=== PATIENT | female | born 1975 | race Caucasian/White ===

== ENCOUNTER 2017-07-17 19:15 | Emergency (ER) | payer BC ==
--- NOTE | 2017-07-17 20:58 | ER ---
Nurse's Notes [facility] Name: Lamar Escobar Age: 42 yrs Sex: Female : 1975 Arrival Date: 07/17/2017 Time: 19:19 Bed 8 Private MD: Randal Lowry Diagnosis: Sprain of ankle Presentation: 07/17 19:38 Presenting complaint: Patient states: stepped off of deck this afternoon at about 1pm tl3 and rolled one ankle the in trying to compensate, rolled the other one, pt is ambulatory. Transition of care: patient was not received from another setting of care. Onset of symptoms was July 17, 2017. Risk Assessment: Do you want to hurt yourself or someone else? Patient reports no desire to harm self or others. Initial Sepsis Screen: Does the patient meet any 2 criteria? No. Patient's initial sepsis screen is negative. Does the patient have a suspected source of infection? No. Patient's initial sepsis screen is negative. Care prior to arrival: None. 19:38 Method Of Arrival: Ambulatory tl3 19:38 Acuity: DEREK 3 tl3 Triage Assessment: 19:40 General: Appears uncomfortable, Behavior is appropriate for age. Pain: Complains of tl3 pain in right leg, left lateral ankle, left Achilles, left medial ankle and anterior aspect of left ankle. Musculoskeletal: Swelling present in bilateral ankles. 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 - Social history:: Smoking status: Patient/guardian denies using tobacco, never smoked. - Ebola Screening: : Patient denies travel to an Ebola-affected area in the 21 days before illness onset. Screenin:39 Abuse screen: Denies threats or abuse. Denies injuries from another. Nutritional bp screening: No deficits noted. Tuberculosis screening: No symptoms or risk factors identified. Fall Risk None identified. Assessment: 20:37 General: Appears in no apparent distress. comfortable, obese, Behavior is calm, bp cooperative, appropriate for age. Pain: Complains of pain in right ankle and left medial ankle. Neuro: Level of Consciousness is awake, alert, obeys commands, Oriented to person, place, time, situation, Appropriate for age. Cardiovascular: No deficits noted. Respiratory: Airway is patent Respiratory effort is even, unlabored, Respiratory pattern is regular, symmetrical. GI: No signs and/or symptoms were reported involving the gastrointestinal system. : No signs and/or symptoms were reported regarding the genitourinary system. EENT: No deficits noted. Derm: No deficits noted. Musculoskeletal: Circulation, motion, and sensation intact. Range of motion: limited in left ankle and right ankle. 21:15 Reassessment: XRAY COMPLETED, RESULTS PENDING FOR DISPO. rv 21:37 Reassessment: Patient appears in no apparent distress at this time. Patient is alert, aa1 oriented x 3, equal unlabored respirations, skin warm/dry/pink. Discussed d/c \T\ f/u instructions with pt; denies questions or concerns at this time. Vital Signs: 19:40 BP 127 / 83; Pulse 93; Resp 18; Temp 98.8; Pulse Ox 98% ; Weight 99.79 kg; Height 5 ft. tl3 4 in. (162.56 cm); 20:37 BP 144 / 92; Pulse 76; Resp 13; Pulse Ox 96% ; bp 21:37 BP 120 / 76; Pulse 76; Resp 18; Pulse Ox 100% on R/A; aa1 19:40 Body Mass Index 37.76 (99.79 kg, 162.56 cm) tl3 ED Course: 19:19 Patient arrived in ED. es 19:19 Randal Lowry MD is Private Physician. es 19:39 Triage completed. tl3 19:40 Arm band placed on left wrist. tl3 20:32 Jeff Haskins MD is Attending Physician. tw4 20:37 Randal Lovett RN is Primary Nurse. bp 20:39 Patient has correct armband on for positive identification. Bed in low position. Call bp light in reach. Side rails up X2. Adult w/ patient. 20:57 Randal Lowry MD is Referral Physician. tw4 21:12 X-ray completed. Portable x-ray completed in exam room. Patient tolerated procedure mh1 well. 21:15 Ankle Left 3 View XRAY In Process Unspecified. EDMS 21:15 Ankle Right 3 View XRAY In Process Unspecified. EDMS 21:37 No provider procedures requiring assistance completed. Patient did not have IV access aa1 during this emergency room visit. Administered Medications: No medications were administered Outcome: 20:58 Discharge ordered by . [email or web address] 21:37 Discharged to home ambulatory, with significant other. aa1 21:37 Condition: good 21:37 Discharge instructions given to patient, significant other, Instructed on discharge instructions, follow up and referral plans. medication usage, Demonstrated understanding of instructions, follow-up care, medications, Prescriptions given X 1. 21:42 Patient left the ED. aa1 Signatures: Dispatcher [employer] Myrna Aguero, RN RN aa1 Rhona Huang Martha 1 Randal Lovett, RN RN bp Jeff Haskins MD MD tw4 Annabel Smith RN RN tl3 Jaya Sanders, RN RN rv
--- NOTE | 2017-07-17 20:58 | EDPHYS ---
Physician Documentation [facility] Name: Lamar Escobar Age: 42 yrs Sex: Female : 1975 Arrival Date: 07/17/2017 Time: 19:19 Bed 8 Private MD: Randal Lowry ED Physician Jeff Haskins HPI: 07/17 20:41 This 42 yrs old Female presents to ER via Ambulatory with complaints of Ankle tw4 Injury. 20:41 The patient presents with decreased range of motion, a deformity, an injury. The tw4 complaints affect the left ankle, right ankle. Onset: The symptoms/episode began/occurred today. Context: The problem was sustained at home, resulted from a mis-step by the patient, on a curb, The mechanism of injury involved inversion of the affected ankle. The mechanism of injury involved eversion of the affected ankle. The patient can fully bear weight on the affected extremity. the patient is able to ambulate. Context: the patient is able to ambulate, with mild difficulty. Associated signs and symptoms: The patient has no apparent associated signs or symptoms. Modifying factors: The symptoms are alleviated by nothing, the symptoms are aggravated by nothing. Severity of symptoms: At their worst the symptoms were mild, in the emergency department the symptoms are unchanged. The patient has not experienced similar symptoms in the past. 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 - Social history:: Smoking status: Patient/guardian denies using tobacco, never smoked. - Ebola Screening: : Patient denies travel to an Ebola-affected area in the 21 days before illness onset. ROS: 20:41 Constitutional: Negative for fever, chills, and weight loss, Cardiovascular: Negative tw4 for chest pain, palpitations, and edema, Respiratory: Negative for shortness of breath, cough, wheezing, and pleuritic chest pain, Abdomen/GI: Negative for abdominal pain, nausea, vomiting, diarrhea, and constipation, Neuro: Negative for headache, weakness, numbness, tingling, and seizure. 20:41 MS/extremity: Positive for injury or acute deformity, swelling, tenderness, Negative for abrasion, bite, contusion, deformity, ecchymosis. Exam: 20:59 Constitutional: This is a well developed, well nourished patient who is awake, alert, tw4 and in no acute distress. Cardiovascular: Regular rate and rhythm with a normal S1 and S2. No gallops, murmurs, or rubs. Normal PMI, no JVD. No pulse deficits. Respiratory: Lungs have equal breath sounds bilaterally, clear to auscultation and percussion. No rales, rhonchi or wheezes noted. No increased work of breathing, no retractions or nasal flaring. Abdomen/GI: Soft, non-tender, with normal bowel sounds. No distension or tympany. No guarding or rebound. No evidence of tenderness throughout. 20:59 Musculoskeletal/extremity: Extremities: noted in the right foot, left Achilles and left medial malleolus: pain, noted in the left lateral malleolus and left medial malleolus: pain. Vital Signs: 19:40 BP 127 / 83; Pulse 93; Resp 18; Temp 98.8; Pulse Ox 98% ; Weight 99.79 kg; Height 5 ft. tl3 4 in. (162.56 cm); 20:37 BP 144 / 92; Pulse 76; Resp 13; Pulse Ox 96% ; bp 21:37 BP 120 / 76; Pulse 76; Resp 18; Pulse Ox 100% on R/A; aa1 19:40 Body Mass Index 37.76 (99.79 kg, 162.56 cm) tl3 MDM: 20:32 Patient medically screened. tw4 20:57 Differential diagnosis: sprain. Data reviewed: vital signs, nurses notes. Test tw4 interpretation: by ED physician or midlevel provider: plain radiologic studies. Counseling: I had a detailed discussion with the patient and/or guardian regarding: the historical points, exam findings, and any diagnostic results supporting the discharge/admit diagnosis, radiology results. Special discussion: I discussed with the patient/guardian in detail that at this point there is no indication for admission to the hospital. It is understood, however, that if the symptoms persist or worsen the patient needs to return immediately for re-evaluation. 07/17 20:23 Order name: Ankle Left 3 View XRAY tw4 07/17 20:40 Order name: Ankle Right 3 View XRAY tw4 Administered Medications: No medications were administered Disposition: 07/17/17 20:58 Discharged to Home. Impression: Sprain of ankle. - Condition is Stable. - Discharge Instructions: Ankle Sprain, [id number]. - Prescriptions for Ibuprofen 800 mg Oral Tablet - take 1 tablet by ORAL route every 8 hours As needed take with food; 30 tablet. - Medication Reconciliation Form, Thank You Letter, Antibiotic Education, Prescription Opioid Use form. - Follow up: Randal Lowry MD; When: As needed; Reason: Recheck today's complaints, Continuance of care, Re-evaluation by your physician. - Problem is new. - Symptoms have improved. Signatures: Dispatcher [employer] EDMS Myrna Frazier RN RN aa1 Jeff Haskins MD MD tw4 Annabel Smith RN RN tl3 Corrections: (The following items were deleted from the chart) 21:42 20:58 07/17/2017 20:58 Discharged to Home. Impression: Sprain of ankle. Condition is aa1 Stable. Forms are Medication Reconciliation Form, Thank You Letter, Antibiotic Education, Prescription Opioid Use. Follow up: Randal Lowry; When: As needed; Reason: Recheck today's complaints, Continuance of care, Re-evaluation by your physician. Problem is new. Symptoms have improved. tw4
--- NOTE | 2017-07-18 11:41 | RAD REPORT ---
EXAM DESCRIPTION: RAD - Ankle Right 3 View - 07/17/2017 9:18 pm CLINICAL HISTORY: Right ankle pain status post injury FINDINGS: No fracture or dislocation is seen.
--- NOTE | 2017-07-18 11:42 | RAD REPORT ---
EXAM DESCRIPTION: RAD - Ankle Left 3 View -07/17/2017 9:17 pm CLINICAL HISTORY: Left ankle pain status post injury FINDINGS: No fracture or dislocation is seen.
== END 2017-07-17 21:42 | disposition home or self-care (01) ==
LOC: ER 19:15
DX: S93.401A Sprain of unspecified ligament of right ankle, initial encounter (principal); W01.0XXA Fall on same level from slipping, tripping and stumbling without subsequent striking against object, initial encounter; Y93.9 Activity, unspecified; Y92.9 Unspecified place or not applicable; Y99.9 Unspecified external cause status
CPT/HCPCS: 99283

== ENCOUNTER 2018-06-30 07:46 | Emergency (ER) | payer BC ==
--- OUTSIDE RECORDS SUMMARY | 2018-06-30 07:49 | XMS REPORT ---
:1975 [facility] Address [address] [place] [address] Dr. Smith [address] [place] [id number] Care Team Providers Name Role Phone Unavailable Unavailable Unavailable Problems This patient has no known problems. Allergies, Adverse Reactions, Alerts This patient has no known allergies or adverse reactions. Medications This patient has no known medications.
[2018-06-30 08:39] LABS: Absolute Lymphocytes (CBC) 0.4 K/uL (0.7-4.9); Absolute Monocytes 0.6 K/uL (0.1-1.3); Absolute Neutrophil 4.3 K/uL (1.8-8.0); Basophils % 0.2 % (0-1.3); Eosinophils % 0.4 % (0-4.4); Lymphocytes % 7.3 % (15.3-44.8); MPV 8.5 fL (7.6-11.3); Monocytes % 11.9 % (3.3-12.3); RBC Red Blood Cell Count 4.85 M/uL (3.86-4.86)
[2018-06-30 09:05] LABS: BUN Blood Urea Nitrogen 13 mg/dL (7-18); Bicarbonate 26 mmol/L (21-32); Glucose Level 128 mg/dL (74-106); Potassium 3.4 mmol/L (3.5-5.1); Sodium Level 139 mmol/L (136-145); Troponin (Emerg Dept Use Only) < 0.02 ng/mL (0.0-0.045)
--- NOTE | 2018-06-30 09:25 | RAD REPORT ---
EXAM DESCRIPTION: Alice Single View06/30/2018 8:36 am CLINICAL HISTORY: Chest pain COMPARISON: none FINDINGS: The lungs appear clear of acute infiltrate. The heart is normal size IMPRESSION: No acute abnormalities displayed
[2018-06-30] MEDS ORDERED: KETOROLAC 30 MG/ML INJ ONE (10:04)
--- NOTE | 2018-06-30 11:18 | RAD REPORT ---
EXAM DESCRIPTION: CT - Chest For Pe Angio - 06/30/2018 10:51 am CLINICAL HISTORY: Chest pain COMPARISON: None. TECHNIQUE: Dynamically enhanced axial 3 mm thick images of the chest were obtained during administra tion of <100> mL Isovue 370 IV contrast. Coronal and oblique reconstruction images were generated and reviewed. Exam utilizes a protocol for optimal evaluation of pulmonary arterial tree. Maximum intensity projections 3D imaging was utilized All CT scans are performed using dose optimization technique as appropriate and may include automated exposure control or mA/KV adjustment according to patient size. FINDINGS: The opacification of the pulmonary arteries is suboptimal. A central pulmonary embolus is not seen. A thoracic aortic aneurysm is not noted. A pleural effusion is not seen. A pericardial effusion is not seen. A lung consolidation is not present. Calcified left lung granuloma IMPRESSION: No gross evidence for pulmonary embolus
[2018-06-30 11:23] LABS: Urine Blood 1+ (NEG); Urine Glucose NEGATIVE (NEG); Urine Protein NEGATIVE (NEG); Urine Specific Gravity 1.025 (1.005-1.030); Urine pH 5.5 (5.0-7.0)
--- NOTE | 2018-06-30 11:31 | ER ---
Nurse's Notes [facility] Name: Lamar Escobar Age: 43 yrs Sex: Female : 1975 Arrival Date: 06/30/2018 Time: 07:49 Bed 15 Private MD: Randal Lowry Diagnosis: Chest pain, unspecified Presentation: 06/30 08:06 Presenting complaint: Patient states: Was unable to sleep last night, My is out sg of town, Im not sure if I am anxious or what, but i have this chest pain that goes deep into my bones, my gums ache and I just dont feel right. Transition of care: patient was not received from another setting of care. Onset of symptoms was June 30, 2018. Risk Assessment: Do you want to hurt yourself or someone else? Patient reports no desire to harm self or others. Initial Sepsis Screen: Does the patient meet any 2 criteria? HR > 90 bpm. Does the patient have a suspected source of infection? No. Patient's initial sepsis screen is negative. Care prior to arrival: None. 08:06 Method Of Arrival: Ambulatory sg 08:06 Acuity: DEREK 3 sg Historical: - Allergies: 08:12 No Known Allergies; sg - Home Meds: 08:11 levothyroxine oral [Active]; sg - PMHx: 08:11 Hypothyroidism; sg - PSHx: 08:11 back surgery; acl repair; ; sg - Immunization history:: Adult Immunizations up to date. - Social history:: Smoking status: Patient/guardian denies using tobacco. - Ebola Screening: : Patient negative for fever greater than or equal to 101.5 degrees Fahrenheit, and additional compatible Ebola Virus Disease symptoms Patient denies exposure to infectious person Patient denies travel to an Ebola-affected area in the 21 days before illness onset No symptoms or risks identified at this time. Screenin:10 Abuse screen: Denies threats or abuse. Denies injuries from another. Nutritional sg screening: No deficits noted. Tuberculosis screening: No symptoms or risk factors identified. Never had TB. Fall Risk None identified. Assessment: 08:10 General: Appears in no apparent distress. well groomed, well developed, well nourished, sg Behavior is cooperative, anxious, crying. Pain: Complains of pain in anterior aspect of left upper chest Quality of pain is described as aching. Neuro: Level of Consciousness is awake, alert, obeys commands, Oriented to person, place, time, [place] are equal bilaterally Moves all extremities. Full function Speech is normal, Facial symmetry appears normal. Cardiovascular: Capillary refill is brisk in bilateral fingers Patient's skin is warm and dry. Chest pain is described as vague, is located in left anterior chest wall. Respiratory: Airway is patent Respiratory effort is even, unlabored, Respiratory pattern is regular, symmetrical. GI: Abdomen is round. : No signs and/or symptoms were reported regarding the genitourinary system. EENT: No signs and/or symptoms were reported regarding the EENT system. Derm: Skin is pink, warm \T\ dry. Musculoskeletal: No signs and/or symptoms reported regarding the musculoskeletal system. 10:23 Reassessment: Patient appears in no apparent distress at this time. Patient and/or sg family updated on plan of care and expected duration. Pain level reassessed. Patient is alert, oriented x 3, equal unlabored respirations, skin warm/dry/pink. awaiting CT at this time Patient denies pain at this time. Patient states feeling better. 11:24 Reassessment: Patient appears in no apparent distress at this time. Patient and/or sg family updated on plan of care and expected duration. Pain level reassessed. Patient is alert, oriented x 3, equal unlabored respirations, skin warm/dry/pink. awaiting dispo orders at this time, will continue to monitor Patient states feeling better. Vital Signs: 08:09 BP 138 / 96; Pulse 112 MON; Resp 19; Temp 98.0; Pulse Ox 99% on R/A; Pain 8/10; sg 09:02 BP 128 / 96; Pulse 115; Resp 17; Pulse Ox 100% on R/A; sg 10:24 BP 110 / 81; Pulse 105; Resp 17; Pulse Ox 99% on R/A; sg 11:22 Pulse 97 MON; Resp 17 S; Pulse Ox 97% on R/A; Pain 0/10; sg ED Course: 07:49 Patient arrived in ED. mr 07:49 Randal Lowry MD is Private Physician. mr 07:56 Raheel Lucio, DENITA is Primary Nurse. sg 07:57 Mark Morley MD is Attending Physician. gs 08:08 Triage completed. sg 08:08 Arm band placed on. sg 08:15 Patient has correct armband on for positive identification. Bed in low position. Call sg light in reach. Side rails up X2. color television console monitor on. Pulse ox on. NIBP on. Warm blanket given. Head of bed elevated. 08:30 Initial lab(s) drawn, by me, sent to lab. Inserted saline lock: 22 gauge in right iw forearm, using aseptic technique. Blood collected. 08:34 X-ray completed. Portable x-ray completed in exam room. Patient tolerated procedure mh1 well. 08:34 EKG done, by air launch weapons technician. reviewed by Mark Morley MD. at1 08:37 XRAY Chest (1 view) In Process Unspecified. EDMS 10:25 Radiology exam delayed due to test not completed at this time. sj 10:52 CT Chest For PE Angio In Process Unspecified. EDMS 11:31 Riki Contreras MD is Referral Physician. gs 11:40 No provider procedures requiring assistance completed. IV discontinued, intact, sg bleeding controlled, No redness/swelling at site. Pressure dressing applied. Administered Medications: 09:55 Drug: TORadol - Ketorolac 15 mg Route: IVP; Site: right forearm; sg 10:30 Follow up: Response: No adverse reaction; Pain is decreased sg Outcome: 11:31 Discharge ordered by MD. gs 11:40 Discharged to home ambulatory. sg 11:40 Condition: good 11:40 Discharge instructions given to patient, Instructed on discharge instructions, follow up and referral plans. safety practices, Demonstrated understanding of instructions, follow-up care. 11:49 Patient left the ED. sg Signatures: Dispatcher [employer] EDMS Raheel Lucio, RN RN Margaret Mckeon Martha 1 Yuliya Gonsalez Irene, RN RN Mandie Saucedo, sales engineer account manager EKG Tat1 Mark Morley MD MD
--- NOTE | 2018-06-30 11:32 | EDPHYS ---
Physician Documentation [facility] Name: Lamar Escobar Age: 43 yrs Sex: Female : 1975 Arrival Date: 06/30/2018 Time: 07:49 Bed 15 Private MD: Randal Lowry ED Physician Mark Morley HPI: 06/30 17:57 This 43 yrs old Female presents to ER via Ambulatory with complaints of gs Anxiety. 17:57 The patient or guardian reports chest pain that is located primarily in the anterior gs chest wall. Onset: yesterday. The pain does not radiate. Associated signs and symptoms: Pertinent positives: anxious, Pertinent negatives: shortness of breath. The chest pain is described as dull. Duration: The patient or guardian reports multiple episodes, that are intermittent, that wax and wane, with no pattern. Modifying factors: The symptoms are alleviated by nothing. the symptoms are aggravated by nothing. Severity of pain: At its worst the pain was moderate in the emergency department the pain is unchanged. The patient has experienced similar episodes in the past, a few times. Historical: - Allergies: 08:12 No Known Allergies; sg - Home Meds: 08:11 levothyroxine oral [Active]; sg - PMHx: 08:11 Hypothyroidism; sg - PSHx: 08:11 back surgery; acl repair; ; sg - Immunization history:: Adult Immunizations up to date. - Social history:: Smoking status: Patient/guardian denies using tobacco. - Ebola Screening: : Patient negative for fever greater than or equal to 101.5 degrees Fahrenheit, and additional compatible Ebola Virus Disease symptoms Patient denies exposure to infectious person Patient denies travel to an Ebola-affected area in the 21 days before illness onset No symptoms or risks identified at this time. ROS: 17:57 All other systems are negative. gs Exam: 17:57 Head/Face: Normocephalic, atraumatic. Eyes: Pupils equal round and reactive to light, gs extra-ocular motions intact. Lids and lashes normal. Conjunctiva and sclera are non-icteric and not injected. Cornea within normal limits. Periorbital areas with no swelling, redness, or edema. ENT: Nares patent. No nasal discharge, no septal abnormalities noted. Tympanic membranes are normal and external auditory canals are clear. Oropharynx with no redness, swelling, or masses, exudates, or evidence of obstruction, uvula midline. Mucous membranes moist. Neck: Trachea midline, no thyromegaly or masses palpated, and no cervical lymphadenopathy. Supple, full range of motion without nuchal rigidity, or vertebral point tenderness. No Meningismus. Chest/axilla: Normal chest wall appearance and motion. Nontender with no deformity. No lesions are appreciated. 17:57 Respiratory: Lungs have equal breath sounds bilaterally, clear to auscultation and percussion. No rales, rhonchi or wheezes noted. No increased work of breathing, no retractions or nasal flaring. Abdomen/GI: Soft, non-tender, with normal bowel sounds. No distension or tympany. No guarding or rebound. No evidence of tenderness throughout. Back: No spinal tenderness. No costovertebral tenderness. Full range of motion. Skin: Warm, dry with normal turgor. Normal color with no rashes, no lesions, and no evidence of cellulitis. MS/ Extremity: Pulses equal, no cyanosis. Neurovascular intact. Full, normal range of motion. Neuro: Awake and alert, GCS 15, oriented to person, place, time, and situation. Cranial nerves II-XII grossly intact. Motor strength 5/5 in all extremities. Sensory grossly intact. Cerebellar exam normal. Normal gait. 17:57 Constitutional: The patient appears alert, awake. 17:57 Cardiovascular: Rate: tachycardic, Rhythm: regular, Pulses: no pulse deficits are appreciated, Heart sounds: normal, Edema: is not appreciated. 17:57 ECG was reviewed by the Attending Physician. Vital Signs: 08:09 BP 138 / 96; Pulse 112 MON; Resp 19; Temp 98.0; Pulse Ox 99% on R/A; Pain 8/10; sg 09:02 BP 128 / 96; Pulse 115; Resp 17; Pulse Ox 100% on R/A; sg 10:24 BP 110 / 81; Pulse 105; Resp 17; Pulse Ox 99% on R/A; sg 11:22 Pulse 97 MON; Resp 17 S; Pulse Ox 97% on R/A; Pain 0/10; sg MDM: 08:04 Patient medically screened. gs 17:57 Differential diagnosis: acute myocardial infarction, anxiety, chest wall pain, gs pulmonary embolus, thoracic aortic disection. Data reviewed: vital signs, nurses notes, lab test result(s), EKG, radiologic studies. Counseling: I had a detailed discussion with the patient and/or guardian regarding: the historical points, exam findings, and any diagnostic results supporting the discharge/admit diagnosis, lab results, radiology results, the need for outpatient follow up, a employee adviser. Response to treatment: the patient's symptoms have markedly improved after treatment, the patient's symptoms have resolved after treatment, the patient's condition has returned to base line. 18:27 HEART Score: History: Slightly Suspicious (0), ECG: Non specific repolarization gs disturbance / LBTB / PM (1), Age: < or = 45 years (0), Risk Factors: 1 or 2 risk factors (1), Troponin: < or = 1 x Normal Limit (0). 06/30 08:05 Order name: Basic Metabolic Panel; Complete Time: 09:32 06/30 08:05 Order name: CBC with Diff; Complete Time: 09:32 06/30 08:05 Order name: Troponin (emerg Dept Use Only); Complete Time: 09:32 06/30 08:16 Order name: TSH; Complete Time: 09:32 06/30 09:54 Order name: Troponin (emerg Dept Use Only); Complete Time: 11:27 06/30 10:45 Order name: Urine Dipstick--Ancillary (enter results); Complete Time: 11:27 06/30 08:03 Order name: EKG; Complete Time: 08:10 06/30 08:03 Order name: EKG - Nurse/Tech; Complete Time: 08:49 06/30 08:05 Order name: XRAY Chest (1 view); Complete Time: 09:32 06/30 08:05 Order name: Cardiac monitoring; Complete Time: 08:43 06/30 08:05 Order name: IV Saline Lock; Complete Time: 08:43 06/30 09:54 Order name: CT Chest For PE Angio; Complete Time: 11:27 06/30 10:45 Order name: Urine --Ancillary (enter results); Complete Time: 11:27 06/30 08:05 Order name: Labs collected and sent; Complete Time: 08:43 06/30 08:05 Order name: O2 Per Protocol; Complete Time: 08:42 gs 06/30 08:05 Order name: O2 Sat Monitoring; Complete Time: 08:42 gs EC:57 Rate is 119 beats/min. Rhythm is regular. MT interval is normal. QRS interval is gs normal. QT interval is normal. T waves are Flattened. No ST changes noted. Clinical impression: NSR w/ Non-specific ST/T Changes. Interpreted by me. Administered Medications: 09:55 Drug: TORadol - Ketorolac 15 mg Route: IVP; Site: right forearm; sg 10:30 Follow up: Response: No adverse reaction; Pain is decreased sg Disposition: 06/30/18 11:31 Discharged to Home. Impression: Chest pain, unspecified. - Condition is Stable. - Discharge Instructions: Nonspecific Chest Pain. - Medication Reconciliation Form, Thank You Letter, Antibiotic Education, Prescription Opioid Use form. - Follow up: Riki Contreras MD; When: 2 - 3 days; Reason: Re-evaluation by your physician. Signatures: Dispatcher [employer] EDUT Raheel Lucio RN RN Mark Morley MD MD Corrections: (The following items were deleted from the chart) 11:49 11:31 06/30/2018 11:31 Discharged to Home. Impression: Chest pain, unspecified. sg Condition is Stable. Forms are Medication Reconciliation Form, Thank You Letter, Antibiotic Education, Prescription Opioid Use. Follow up: Riki Contreras; When: 2 - 3 days; Reason: Re-evaluation by your physician.
--- NOTE | 2018-06-30 12:45 | EKG ---
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
== END 2018-06-30 11:49 | disposition home or self-care (01) ==
LOC: ER 07:46
DX: R07.9 Chest pain, unspecified (principal); E03.9 Hypothyroidism, unspecified
CPT/HCPCS: 36415; 71045; 71275; 80048; 81003; 81025; 84443; 84484; 85025; 93005; 96374; 99285; Q9967